=== PATIENT | male | born 1960 | race Caucasian/White ===

== ENCOUNTER → 2017-01-26 | Outpatient (CLI) | payer BC ==
[~2017-01-26] MED LIST: PRILOSEC20 MG PO
== END ==
LOC: CAT 10:50
DX: E88.89 Other specified metabolic disorders (principal); R10.31 Right lower quadrant pain; R59.0 Localized enlarged lymph nodes

== ENCOUNTER → 2018-01-13 | Outpatient (CLI) | payer BC | LOC: CAT 09:31 | DX: R22.2 Localized swelling, mass and lump, trunk (principal) ==